=== PATIENT | female | born 1945 | race Caucasian/White ===

== ENCOUNTER 2019-08-26 10:38 | Outpatient (CLI) | payer MEDICARE | END 2019-08-26 23:59 | disposition home or self-care (01) | LOC: CFH 10:38 | PROVIDERS: ATTEND Internal Medicine | DX: M25.512 Pain in left shoulder (principal); M53.3 Sacrococcygeal disorders, not elsewhere classified; M25.78 Osteophyte, vertebrae | CPT/HCPCS: 72220 ==